=== PATIENT | male | born 1955 | race Caucasian/White ===

== ENCOUNTER 2018-04-12 06:50 | Day surgery (SDC) | payer MEDICARE, BC ==
[2018-04-11 13:28] LABS: HEMATOCRIT 42.3 % (42.0-54.0); MCH 30.9 pg (26.0-34.0); MCHC 35.5 g/dL (31.0-37.0); MEAN PLATELET VOLUME 10.3 fL (7.4-10.4); RBC 4.86 10x6/uL (4.20-6.10); RDW 12.7 % (11.5-14.5)
[2018-04-11 13:55] LABS: CALC OSMOLALITY 282 mosm/kg (275-300); CALCIUM 9.5 mg/dL (8.5-10.1); CARBON DIOXIDE 23.7 mmol/L (21.0-32.0); CHLORIDE - SERUM 101 mmol/L (98-107); CREATININE - SERUM 0.9 mg/dL (0.6-1.3); GLUCOSE 186 mg/dL (74-106); POTASSIUM - SERUM 4.1 mmol/L (3.5-5.1); SODIUM 138 mmol/L (136-145); UREA NITROGEN 19 mg/dL (7-18); eGFR NON AFRICAN AMERICAN 90 mL/min (90-120)
[~2018-04-12] VITALS: Ht 180.3 cm; Wt 99.8 kg
[~2018-04-12 06:50] MED LIST: GLUCOPHAGE1000 MG PO; GLUCOTROL XL 1010 MG PO; LIPITOR10 MG PO; LISINOPRIL10 MG PO; TRULICITY0.75 MG/0. SC; ZIAC 10-6.25 MG1 TAB PO
[2018-04-12] MEDS ORDERED: LYRICA100 MG PO (06:59)
[2018-04-12 07:02] VITALS: Ht 180.3 cm; Wt 99.8 kg
--- NOTE | 2018-04-12 10:55 | NUR ---
REC'D FROM RR. FAMILY AT BEDSIDE. DRESSING CDI TO RIGHT GROIN. ICE WATER TAKEN TO PT.
--- NOTE | 2018-04-12 11:49 | NUR ---
NORCO 5MG PO ADMINISTERED PER ORDERS FOR C/O 10/28. FAMILY AT BEDSIDE.
--- NOTE | 2018-04-12 11:55 | NUR ---
CALLI NICHOLE BROUGHT TO PT. FAMILY AT BEDSIDE.
--- NOTE | 2018-04-12 12:30 | NUR ---
TOLERATED DIET. NO URGE TO VOID.
--- NOTE | 2018-04-12 12:47 | NUR ---
CONTINUES TO C/O PAIN 10/28. NORCO 5MG PO ADMINISTERED PER ORDERS. INSTRUCTED PT WHEN DC'D HE IS ALLOWED TO TAKE TWO TABLETS FOR SEVERE PAIN. VERBALIZED UNDERSTANDING.
--- NOTE | 2018-04-12 13:15 | NUR ---
AMBULATED TO BATHROOM AND VOIDED WITHOUT DIFFICULTY. IV DC'D WITH CATHTER INTACT. WRITTEN AND VERBAL DC INST. GIVEN TO PT ALONG WITH RX. VERBALIZED UNDERSTANDING.
--- NOTE | 2018-04-12 13:25 | NUR ---
DC'D HOME WITH FAMILY VIA PRIVATE VEHICLE. AMBUALTED TO VEHCLE ACCOMPANIED BY [facility] VOLUNTEER. RELATES FEELS BETTER TO STAND THAN TO SIT. STABLE AT TIME OF DC.
--- NOTE | 2018-04-14 12:55 | OP ---
PATIENT NAME: CHIDI HER MEDICAL RECORD: [id number] :51 LOCATION:[facility], [facility]IN [facility] ADMISSION DATE: SURGEON: SANTANA CURRY MD DATE OF OPERATION: 04/12/2018 PREOPERATIVE DIAGNOSIS: Symptomatic large right inguinal hernia. POSTOPERATIVE DIAGNOSES: 1. Symptomatic incarcerated large right inguinal hernia. 2. Right cord lipoma. PROCEDURES: 1. Open symptomatic incarcerated large right inguinal hernia repair with bilayered polypropylene mesh. 2. Excision of right cord lipoma. ANESTHESIA: General. SURGEON: Santana Curry MD COMPLICATIONS: None. The risks, possible complications and alternatives to the procedure were explained to the patient. He elects to proceed. The discussion specifically included, but was not limited to, bleeding requiring emergency reoperation, infection, possible need for an orchiectomy. OPERATIVE COURSE: The patient was conveyed to the operating room electively on 04/12/2018. General anesthesia was induced by the anesthesia staff. The abdomen and genitals were sterilely prepped and draped. A transverse incision was accomplished in the right lower quadrant. Sharp dissection was carried down through the skin and subcutaneous tissues as well as Vikki fascia. I then sharply cleaned overlying connective tissue from the underlying external oblique aponeurosis. I incised the external oblique aponeurosis along the direction of its fibers. I bluntly dissected down through the internal oblique and transversus abdominis muscles. This was easily done as really the very large hernia had really blown out anteriorly through most of the internal oblique and transverse abdominis muscles. A preperitoneal pocket was fashioned bluntly. I reduced a very large indirect sac. I incised into the sac. There was a lot of incarcerated omentum. I was going to have a difficult time reducing this large amount of omentum back into the abdominal cavity. I elected to excise it instead. I utilized the Super Jaw EnSeal device to seal and divide a large portion of the greater omentum. I excised some of the hernia sac as well. I then reperitonealized with a pursestring 3-0 Vicryl suture. I noticed a cord lipoma. I clamped across the apex of the cord lipoma and transected the cord lipoma distal to this. I then ligated the vascular pedicle to the cord lipoma with a single 3-0 Vicryl suture. I then cut out 2 ovals of polypropylene mesh. The 2 ovals were sutured one on top of the other with a running #1 Surgidac. The mesh was placed in the preperitoneal space. The internal oblique and transversus abdominis muscles were approximated over the mesh with multiple interrupted horizontal mattress 0 Surgidacs. The external oblique aponeurosis was closed with a running #1 Vicryls. Vikki fascia was approximated with interrupted 3-0 Vicryls. The OPERATIVE REPORT [id number] CHIDI HER subdermis was approximated with interrupted 3-0 Vicryls. The skin was approximated with a running intracuticular 3-0 Vicryl. Benzoin and Steri-Strips were applied. The patient was then extubated and conveyed to the post-anesthesia care unit where he was in stable condition. TRANSINT:[id number] Voice Confirmation ID: [id number] DOCUMENT ID: [id number] SANTANA CURRY MD at 1255 CC: PENNY LOVELL DO and ADOLFO LIRIANO [id number] DICTATION DATE: 04/13/181856 JAVASCRIPT ENGINEER: 04/14/18 0028 [facility] 04/12/18 [facility] [address] [place] [address]
== END 2018-04-12 13:25 | disposition home or self-care (01) ==
LOC: D.OPS 06:50 → D.PAN 09:00 → D.OPS 13:25
PROVIDERS: Anesthesiology
DX: K40.90 Unilateral inguinal hernia, without obstruction or gangrene, not specified as recurrent (principal); D17.6 Benign lipomatous neoplasm of spermatic cord